=== PATIENT | male | born 1970 | race Caucasian/White ===

== ENCOUNTER 2021-08-05 11:01 | Emergency (ER) | payer BC, OTHER ==
[2021-08-05] MEDS ORDERED: Sodium Chloride 0.9% 1,000 ML IV STA (11:22)
[2021-08-05] MEDS ORDERED: Ondansetron 4 MG/2 ML SDV IVPUSH ONE (11:22)
[2021-08-05 12:00] LABS: ACETAMINOPHEN 0 ug/mL (10-30)
[2021-08-05] MEDS ORDERED: Potassium Chloride 20 MEQ Tab.ER PO ONE ×2 (12:20→14:34)
[2021-08-05] MEDS ORDERED: Diltiazem 180 MG Cap.CD PO ONE (12:31)
[2021-08-05] MEDS ORDERED: amLODIPine 5 MG Tab PO ONE (12:33)
== END 2021-08-05 15:37 | disposition home or self-care (01) ==
LOC: JD.ED 11:01
DX: F10.129 Alcohol abuse with intoxication, unspecified (principal); Y90.5 Blood alcohol level of 100-119 mg/100 ml
CPT/HCPCS: 36415; 80053; 80143; 80179; 80306; 80307; 84443; 85007; 85027; 93005; 96374; 99284; A9270; J2405; J7030